=== PATIENT | female | born 1950 | race Caucasian/White ===

== ENCOUNTER 2017-08-28 09:07 | Emergency (ER) | payer MEDICARE, OTHER ==
[~2017-08-28] VITALS: Ht 170.2 cm; Wt 100.0 kg
[~2017-08-28 09:07] MED LIST: FURO-152 PO; GLIP10TA10 PO; INSLAN SQ; INSU100V3 IJ; LIP40 PO; LISI-604 PO
[2017-08-28] MEDS ORDERED: METHOCARBAMOL 500MG TABLET PO ONE (10:00)
[2017-08-28] MEDS ORDERED: KETOROLAC 60MG/2ML VIAL IM ONE (10:00)
[2017-08-28 11:37] VITALS: BP 147/79
== END 2017-08-28 11:53 | disposition home or self-care (01) ==
LOC: ER 09:07
DX: S43.491A Other sprain of right shoulder joint, initial encounter (principal); E11.9 Type 2 diabetes mellitus without complications; E78.00 Pure hypercholesterolemia, unspecified; I10 Essential (primary) hypertension; Z79.4 Long term (current) use of insulin; Z90.710 Acquired absence of both cervix and uterus; W01.0XXA Fall on same level from slipping, tripping and stumbling without subsequent striking against object, initial encounter; Y93.89 Activity, other specified; Y92.018 Other place in single-family (private) house as the place of occurrence of the external cause
CPT/HCPCS: 73030; 96372; 99284; J1885